=== PATIENT | male | born 1945 | race Two or more races ===

== ENCOUNTER 2016-08-26 13:50 | Emergency (ER) | payer MEDICAID, MEDICARE ==
[~2016-08-26] VITALS: Ht 172.7 cm; Wt 115.7 kg
[2016-08-26 14:35] VITALS: BP 157/56
== END 2016-08-26 14:58 | disposition home or self-care (01) ==
LOC: ER 14:01
DX: E11.9 Type 2 diabetes mellitus without complications (principal); H40.9 Unspecified glaucoma; Z76.0 Encounter for issue of repeat prescription

== ENCOUNTER 2021-04-21 19:03 | Emergency (ER) | payer OTHER ==
[~2021-04-21] VITALS: Ht 172.7 cm; Wt 100.7 kg
[2021-04-21 19:04] VITALS: BP 136/67
[2021-04-21] MEDS ORDERED: ACETAMINOPHEN 500 MG TAB PO ONE (20:30)
[2021-04-21] MEDS ORDERED: ALPRAZolam 0.25 MG TAB PO ONE (20:30)
== END 2021-04-22 00:47 | disposition home or self-care (01) ==
LOC: EDBD 19:03 → ER 19:04
DX: S46.912A Strain of unspecified muscle, fascia and tendon at shoulder and upper arm level, left arm, initial encounter (principal); S13.4XXA Sprain of ligaments of cervical spine, initial encounter; E11.9 Type 2 diabetes mellitus without complications; Z88.8 Allergy status to other drugs, medicaments and biological substances; V49.9XXA Car occupant (driver) (passenger) injured in unspecified traffic accident, initial encounter; Y93.89 Activity, other specified; Y92.410 Unspecified street and highway as the place of occurrence of the external cause; Y99.8 Other external cause status
CPT/HCPCS: 70450; 72040; 73030; 82962